=== PATIENT | female | born 1935 | race Caucasian/White ===

== ENCOUNTER 2019-03-03 09:16 | Emergency (ER) | payer MEDICARE ==
--- NOTE | 2019-03-03 09:27 | EDM.PDOC ---
ED HPI GENERAL MEDICAL PROBLEM - General Chief Complaint: Neurological Problem Stated Complaint: CODE GREEN Time Seen by Provider: 03/03/19 09:20 Source of Information: Reports: Patient, EMS, Old Records History Limitations: Reports: No Limitations - History of Present Illness INITIAL COMMENTS - FREE TEXT/NARRATIVE: Patient was last known to be okay at 8:00 this morning. Then she started having numbness and tingling on the right side and this went TO HER RIGHT ANKLE. SHE ALSO HAD VISUAL EFFECTS SLURRING. By time she came into the emergency room her symptoms had essentially resolved. She did have a CAT scan which was deemed negative. Her labs were unremarkable. Her blood pressure was initially 170 but it did come down to in the 130s. 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 I did talk to the neurologist about 10:15. He suggested to continue to challenge the patient regarding the dysphagia to see whether or not the patient was having a true issue with it. Otherwise he said TPA could be a recommendation. CTA was not recommended at this time. I did give her a 500 bolus. The patient is otherwise quite active. Her coiling of her brain bleed was in 2010. Her regular doctor is Garima Loredo. The last time that she was seen by her doctor was in December for a urinary tract infection. The patient is scheduled again to see her doctor in May. She is on Plavix. I did talk to the neurologist again and he agreed that the TPA was unnecessary. I did talk to him about the concern of her going home and he did have me talk to the hospitalist and hospitalist agreed to admit the patient for at least observation. This was done about 11:15. The patient was comfortable with this plan. Correspondence with [place] took about 30 minutes and assisting with the patient's care. Onset: Today, Sudden Duration: Intermittent Location: Reports: Head, Face, Upper Extremity, Right, Lower Extremity, Right Past Medical History - History Comment History Comment: Reviewed her medical history. Social & Family History - Tobacco Use Smoking Status *Q: Former Smoker ED ROS GENERAL - Review of Systems Review Of Systems: ROS reveals no pertinent complaints other than HPI. ED EXAM, NEURO - Physical Exam Exam: See Below Exam Limited By: No Limitations General Appearance: Alert, Mild Distress Ears: Normal External Exam, Normal Canal, Hearing Grossly Normal, Normal TMs Nose: Normal Inspection, Normal Mucosa, No Blood Throat/Mouth: Normal Inspection, Normal Lips, Normal Teeth, Normal Gums, Normal Oropharynx, Normal Voice, No Airway Compromise Head Exam: Atraumatic, Normocephalic Neck: Normal Inspection, Supple, Non-Tender, Full Range of Motion Respiratory/Chest: No Respiratory Distress, Lungs Clear, Normal Breath Sounds, No Accessory Muscle Use, Chest Non-Tender Cardiovascular: Normal Peripheral Pulses, Regular Rate, Rhythm, No Edema, No Gallop, No JVD, No Murmur, No Rub GI/Abdominal: Normal Bowel Sounds, Soft, Non-Tender, No Organomegaly, No Distention, No Abnormal Bruit, No Mass Neurological: Alert, Normal Mood/Affect, CN II-XII Intact, Normal Gait, Normal Reflexes, Oriented x 3, Other (A degree of dysphasia. ) *Q Meaningful Use (ADM) - VTE *Q VTE Criteria *Q: On Plavix VTE Mechanical Contraindications *Q: At Risk for Falls (based on age and previous TIAs.) - VTE Risk Assess *Q Each Risk Factor Represents 1 Point: None Total Score 1 Point Risk Factors: 0 Each Risk Factor Represents 3 Points: Age 75 Years or Greater Total Score 3 Point Risk Factors: 3 - Stroke *Q Stroke Criteria *Q: TIA Course - Orders/Labs/Meds Orders: Active Orders 24 hr Category Date Time Status EKG 12 Lead [EKG Documentation Completion] [RC] STAT Care 03/03/19 10:36 Active CULTURE URINE [RM] Stat Lab 03/03/19 10:01 Received Labs: Laboratory Tests 03/03/19 03/03/19 03/03/19 Range/Units 09:30 09:30 09:30 WBC 3.6 L (4.0-10.0) x10^3/uL RBC 4.45 (4.00-5.50) x10^6/uL Hgb 13.2 (12.0-16.0) g/dL Hct 40.7 (33.0-47.0) % MCV 91.5 (78.0-93.0) fL MCH 29.7 (26.0-32.0) pg MCHC 32.4 (32.0-36.0) g/dL RDW Coeff of Joceline 13.9 (10.0-15.0) % Plt Count 206 (130-400) x10^3/uL Neut % (Auto) 52.4 (50.0-80.0) % Lymph % (Auto) 33.7 (25.0-50.0) % [place] % (Auto) 8.6 (2.0-11.0) % Eos % (Auto) 4.7 H (0.0-4.0) % Baso % (Auto) 0.6 (0.2-1.2) % PT 10.8 (10.0-12.8) SEC INR 1.0 L (2.0-3.5) APTT 24.0 (24.0-36.0) SEC Sodium 143 (136-145) mmol/L Potassium 4.0 (3.5-5.1) mmol/L Chloride 105 (98-107) mmol/L Carbon Dioxide 28 (21-32) mmol/L Anion Gap 14.0 (10-20) mmol/L BUN 16 (7-18) mg/dL Creatinine 0.9 (0.55-1.02) mg/dL Est Cr Clr Drug Dosing TNP Estimated GFR (MDRD) 60 Glucose 105 (74-106) mg/dL Calcium 9.0 (8.5-10.1) mg/dL POC Troponin I (0.00-0.08) ng/mL 03/03/19 Range/Units 09:39 WBC (4.0-10.0) x10^3/uL RBC (4.00-5.50) x10^6/uL Hgb (12.0-16.0) g/dL Hct (33.0-47.0) % MCV (78.0-93.0) fL MCH (26.0-32.0) pg MCHC (32.0-36.0) g/dL RDW Coeff of Joceline (10.0-15.0) % Plt Count (130-400) x10^3/uL Neut % (Auto) (50.0-80.0) % Lymph % (Auto) (25.0-50.0) % [place] % (Auto) (2.0-11.0) % Eos % (Auto) (0.0-4.0) % Baso % (Auto) (0.2-1.2) % PT (10.0-12.8) SEC INR (2.0-3.5) APTT (24.0-36.0) SEC Sodium (136-145) mmol/L Potassium (3.5-5.1) mmol/L Chloride (98-107) mmol/L Carbon Dioxide (21-32) mmol/L Anion Gap (10-20) mmol/L BUN (7-18) mg/dL Creatinine (0.55-1.02) mg/dL Est Cr Clr Drug Dosing Estimated GFR (MDRD) Glucose (74-106) mg/dL Calcium (8.5-10.1) mg/dL POC Troponin I 0.00 (0.00-0.08) ng/mL Meds: Medications Discontinued Medications Generic Name Dose Route Start Last Admin Trade Name Freq PRN Reason Stop Dose Admin Sodium Chloride 500 mls @ 999 mls/hr 03/03/19 10:29 03/03/19 10:35 Normal Saline IV 03/03/19 10:59 999 mls/hr .BOLUS ONE Administration Departure - Departure Time of Disposition: 11:29 Disposition: DC/Tfer to Acute Hospital 02 Condition: Fair Clinical Impression: Transient ischemic attack (TIA) - Discharge Information *PRESCRIPTION DRUG MONITORING PROGRAM REVIEWED*: Not Applicable *COPY OF PRESCRIPTION DRUG MONITORING REPORT IN PATIENT [place]: Not Applicable Referrals: Isabel Loredo DO [Primary Care Provider] - Forms: ED Department Discharge, Interfacility Transfer EMTALA - My Orders Last 24 Hours: My Active Orders 03/03/19 10:01 CULTURE URINE [RM] Stat 03/03/19 10:36 EKG 12 Lead [EKG Documentation Completion] [RC] STAT - Assessment/Plan Last 24 Hours: My Active Orders 03/03/19 10:01 CULTURE URINE [RM] Stat 03/03/19 10:36 EKG 12 Lead [EKG Documentation Completion] [RC] STAT
--- NOTE | 2019-03-03 09:43 | CT ---
[id number] CT/CT Head Stroke Protocol EXAM: CT Head Stroke Protocol CLINICAL DATA: STROKE. 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 No intracranial hemorrhage, extra-axial fluid collection, mass, or acute ischemia. Generalized parenchymal atrophy with scattered areas of nonspecific white matter disease, commonly seen as sequela of chronic microvascular ischemia. Soft tissues are unremarkable. Paranasal sinuses and mastoid air cells are clear. IMPRESSION: No acute intracranial findings. Ricky Cary DO 03/03/19 0941 Thank you for allowing us to participate in the care of your patient.
[2019-03-03 09:59] LABS: CHLORIDE,CL 105 mmol/L (98-107); SODIUM,NA 143 mmol/L (136-145)
[2019-03-03] MEDS ORDERED: Sodium Chloride 0.9% 500 ML IV ONE (10:29)
== END 2019-03-03 11:40 | disposition short-term general hospital (02) ==
LOC: VM.ED 09:16
DX: G45.9 Transient cerebral ischemic attack, unspecified (principal); Z87.891 Personal history of nicotine dependence
CPT/HCPCS: 36415; 70450; 80048; 84484; 85025; 85610; 85730; 87086; 93005; 96360; 99285; J7030; 99284-GF

== ENCOUNTER 2019-04-01 07:41 | Emergency (ER) | payer MEDICARE ==
--- NOTE | 2019-04-01 08:14 | CT ---
[id number] CT/CT Head Stroke Protocol Exam: CT Head Stroke Protocol Clinical Data: NEUROLOGIC DEFICIT COMPARISON: NO PREVIOUS SIMILAR EXAM IS AVAILABLE FINDINGS: Embolization coils are seen. There is no hyperdense middle cerebral artery sign. There are no sites of discrete acute abnormal attenuation. There are no blood products. There is no mass or mass effect. There are no extra-axial fluid collections. Report was called at the time of the exam. IMPRESSION: NO ACUTE PLAIN CT ABNORMALITY. Raffi Cotton MD 04/01/19 0812 Thank you for allowing us to participate in the care of your patient.
[2019-04-01 08:17] LABS: CHLORIDE,CL 107 mmol/L (98-107); SODIUM,NA 144 mmol/L (136-145)
[2019-04-01 08:19] LABS: ANION GAP 13.7 mmol/L (10-20)
--- NOTE | 2019-04-01 08:30 | CT ---
[id number] CT/CT Cervical Spine WO IV Exam: CT Cervical Spine WO IV Clinical Data: RIGHT SIDE DECREASED SENSATION COMPARISON: NO PREVIOUS SIMILAR EXAM IS AVAILABLE FINDINGS: There is no fracture or subluxation. There are degenerative changes primarily involving C5-C6, C6-C7, and C7-T1. Foraminal narrowing is seen at these levels. IMPRESSION: DEGENERATIVE CHANGES OF LOWER CERVICAL SPINE. Raffi Cotton MD 04/01/19 0829 Thank you for allowing us to participate in the care of your patient.
[2019-04-01] MEDS ORDERED: Sodium Chloride 0.9% 1,000 ML IV ONE (08:33)
[2019-04-01] MEDS ORDERED: Ondansetron 4 MG/2 ML SDV IVPUSH ONE (08:33)
--- NOTE | 2019-04-01 08:33 | EDM.PDOC ---
ED HPI GENERAL MEDICAL PROBLEM - General Chief Complaint: Neuro Symptoms/Deficits Stated Complaint: DEVEN GALLARDO Time Seen by Provider: 04/01/19 07:45 Source of Information: Reports: Patient, EMS History Limitations: Reports: No Limitations - History of Present Illness INITIAL COMMENTS - FREE TEXT/NARRATIVE: Patient reports being up to use the bathroom at 0430 this am and when she awoke at 0730 notice she had right arm and leg numbness. She states this is still present. Denies weakness, facial droop, speech or swallowing difficulty. She denies headache. Has had multiple episodes in the past with the most recent in February 2019 resulting with the above, as well as speech problems and facial parasthesia. She denies at this time. Upon discharge from [facility] in February they did question as to whether this was a seizure or atypical migraine headache and did start her on Keppra. She was unable to tolerate and was weaned off. Neurontin was then started. Does have some nausea but no emesis. Denies recent illness. No fever, chills, chest pain, SOB, abdominal pain. Onset: Today, Sudden Onset Date: 04/01/19 Onset Time: 07:30 Duration: Constant Location: Reports: Upper Extremity, Right, Lower Extremity, Right Past Medical History - History Comment History Comment: Reviewed her medical history. ED ROS GENERAL - Review of Systems Review Of Systems: See Below Constitutional: Reports: No Symptoms HEENT: Reports: No Symptoms Respiratory: Reports: No Symptoms Cardiovascular: Reports: No Symptoms Endocrine: Reports: No Symptoms GI/Abdominal: Reports: Nausea Musculoskeletal: Reports: No Symptoms Skin: Reports: No Symptoms Neurological: Reports: Numbness (right arm and leg) Psychiatric: Reports: No Symptoms Hematologic/Lymphatic: Reports: No Symptoms Immunologic: Reports: No Symptoms ED EXAM, NEURO - Physical Exam Exam: See Below Exam Limited By: No Limitations General Appearance: Alert, WD/WN, No Apparent Distress Eye Exam: Bilateral Eye: EOMI, Normal Inspection, PERRL (pupils 2-3 bilaterally, ) Ears: Normal TMs Nose: Normal Inspection, Normal Mucosa, No Blood Throat/Mouth: Normal Inspection, Normal Lips, Normal Teeth, Normal Gums, Normal Oropharynx, Normal Voice, No Airway Compromise Head Exam: Atraumatic, Normocephalic Neck: Normal Inspection, Supple, Non-Tender, Full Range of Motion Respiratory/Chest: No Respiratory Distress, Lungs Clear, Normal Breath Sounds, No Accessory Muscle Use, Chest Non-Tender Cardiovascular: Normal Peripheral Pulses, Regular Rate, Rhythm, No Edema, No Gallop, No JVD, No Murmur, No Rub GI/Abdominal: Normal Bowel Sounds, Soft, Non-Tender, No Organomegaly, No Distention, No Abnormal Bruit, No Mass Neurological: Alert, Normal Mood/Affect, Normal Dorsiflexion, CN II-XII Intact, Normal Plantar Flexion, Normal Gait, Normal Reflexes, Oriented x 3, Abn 2 Pt Discrimination (right leg and arm ) Back Exam: Normal Inspection, Full Range of Motion, NT Extremities: Normal Inspection, Normal Range of Motion, Non-Tender, No Pedal Edema, Normal Capillary Refill Psychiatric: Normal Affect, Normal Mood Skin Exam: Warm, Dry, Intact, Normal Color, No Rash Course - Orders/Labs/Meds Labs: Laboratory Tests 04/01/19 04/01/19 04/01/19 Range/Units 07:57 07:57 07:57 WBC 3.3 L (4.0-10.0) x10^3/uL RBC 4.42 (4.00-5.50) x10^6/uL Hgb 13.1 (12.0-16.0) g/dL Hct 39.8 (33.0-47.0) % MCV 90.0 (78.0-93.0) fL MCH 29.6 (26.0-32.0) pg MCHC 32.9 (32.0-36.0) g/dL RDW Coeff of Joceline 13.6 (10.0-15.0) % Plt Count 187 (130-400) x10^3/uL Neut % (Auto) 45.0 L (50.0-80.0) % Lymph % (Auto) 39.8 (25.0-50.0) % [place] % (Auto) 9.1 (2.0-11.0) % Eos % (Auto) 5.2 H (0.0-4.0) % Baso % (Auto) 0.9 (0.2-1.2) % PT 10.5 (10.0-12.8) SEC INR 0.9 L (2.0-3.5) APTT 23.0 L (24.0-36.0) SEC Sodium 144 (136-145) mmol/L Potassium 3.7 (3.5-5.1) mmol/L Chloride 107 (98-107) mmol/L Carbon Dioxide 27 (21-32) mmol/L Anion Gap 13.7 (10-20) mmol/L BUN 16 (7-18) mg/dL Creatinine 0.9 (0.55-1.02) mg/dL Est Cr Clr Drug Dosing TNP Estimated GFR (MDRD) 60 Glucose 121 H (74-106) mg/dL Calcium 8.9 (8.5-10.1) mg/dL POC Troponin I (0.00-0.08) ng/mL NT-Pro-B Natriuret Pep (<=450) pg/mL Urine Color (YELLOW) Urine Appearance (CLEAR) Urine pH (5.0-8.0) Ur Specific [place] Urine Protein (NEGATIVE) mg/dL Urine Glucose (UA) (NEGATIVE) mg/dL Urine Ketones (NEGATIVE) mg/dL Urine Occult Blood (NEGATIVE) Urine Nitrite (NEGATIVE) Urine Bilirubin (NEGATIVE) Urine Urobilinogen (0.2) EU/dL Ur Leukocyte Esterase (NEGATIVE) Urine RBC (NOT SEEN) /HPF Urine WBC (NOT SEEN) /HPF Ur Squamous Epith Cells (NEGATIVE) /HPF Urine Bacteria (NEGATIVE) /HPF Urine Mucus (NEGATIVE) /LPF 04/01/19 04/01/19 04/01/19 Range/Units 07:57 08:01 08:25 WBC (4.0-10.0) x10^3/uL RBC (4.00-5.50) x10^6/uL Hgb (12.0-16.0) g/dL Hct (33.0-47.0) % MCV (78.0-93.0) fL MCH (26.0-32.0) pg MCHC (32.0-36.0) g/dL RDW Coeff of Joceline (10.0-15.0) % Plt Count (130-400) x10^3/uL Neut % (Auto) (50.0-80.0) % Lymph % (Auto) (25.0-50.0) % [place] % (Auto) (2.0-11.0) % Eos % (Auto) (0.0-4.0) % Baso % (Auto) (0.2-1.2) % PT (10.0-12.8) SEC INR (2.0-3.5) APTT (24.0-36.0) SEC Sodium (136-145) mmol/L Potassium (3.5-5.1) mmol/L Chloride (98-107) mmol/L Carbon Dioxide (21-32) mmol/L Anion Gap (10-20) mmol/L BUN (7-18) mg/dL Creatinine (0.55-1.02) mg/dL Est Cr Clr Drug Dosing Estimated GFR (MDRD) Glucose (74-106) mg/dL Calcium (8.5-10.1) mg/dL POC Troponin I 0.00 (0.00-0.08) ng/mL NT-Pro-B Natriuret Pep 53 (<=450) pg/mL Urine Color Light yellow (YELLOW) Urine Appearance Clear (CLEAR) Urine pH 7.5 (5.0-8.0) Ur Specific [place] 1.015 Urine Protein Negative (NEGATIVE) mg/dL Urine Glucose (UA) Negative (NEGATIVE) mg/dL Urine Ketones Negative (NEGATIVE) mg/dL Urine Occult Blood Negative (NEGATIVE) Urine Nitrite Negative (NEGATIVE) Urine Bilirubin Negative (NEGATIVE) Urine Urobilinogen 0.2 (0.2) EU/dL Ur Leukocyte Esterase Negative (NEGATIVE) Urine RBC 0-5 (NOT SEEN) /HPF Urine WBC Not seen (NOT SEEN) /HPF Ur Squamous Epith Cells Rare (NEGATIVE) /HPF Urine Bacteria Rare (NEGATIVE) /HPF Urine Mucus Rare H (NEGATIVE) /LPF Meds: Medications Discontinued Medications Generic Name Dose Route Start Last Admin Trade Name Kevinq PRN Reason Stop Dose Admin Sodium Chloride 1,000 mls @ 999 mls/hr 04/01/19 08:33 Normal Saline IV 04/01/19 09:33 ONETIME ONE Ondansetron HCl 4 mg 04/01/19 08:33 Zofran IVPUSH 04/01/19 08:34 ONETIME ONE - Re-Assessments/Exams Free Text/Narrative Re-Assessment/Exam: 04/01/19 0900 Called [facility] call for report and transfer of patient. Neurology not immediately available and I did have to wait 20-30 minutes for callback. Departure - Departure Time of Disposition: 10:25 Disposition: DC/Tfer to Acute Hospital 02 Condition: Fair Clinical Impression: Migraine - Discharge Information Referrals: Isabel Loredo DO [Primary Care Provider] - Forms: ED Department Discharge, Interfacility Transfer [facility] ED Communication - ED Communication Date/Time Date: 04/01/19 Time Called: 09:15 - Discussed Case With (1) Discussed Case With (1): Other (Dr. Cohen contacted regarding patient. He does not feel vascular is needed and referred to Dr. Queen, with neurology. Dr. Queen contacted and given report. Recommends transfer to ER for MRA/MRI and EEG in ER. He talked with Dr. lFaherty in ED [facility].)
== END 2019-04-01 10:25 | disposition short-term general hospital (02) ==
LOC: VM.ED 07:41
DX: G43.909 Migraine, unspecified, not intractable, without status migrainosus (principal)
CPT/HCPCS: 36415; 70450; 72125; 80048; 81001; 83880; 84484; 85025; 85610; 85730; 93005; 96361; 96374; 99283-GF; 99291-25; 99292

== ENCOUNTER 2019-08-04 12:39 | Emergency (ER) | payer MEDICARE ==
--- NOTE | 2019-08-04 13:05 | EDM.PDOC ---
ED HPI GENERAL MEDICAL PROBLEM - General Chief Complaint: Chest Pain Stated Complaint: ACID REFLUX Time Seen by Provider: 08/04/19 12:45 Source of Information: Reports: Patient History Limitations: Reports: No Limitations - History of Present Illness INITIAL COMMENTS - FREE TEXT/NARRATIVE: Patient states about 1045 this morning she had a sharp burning pain in her lower epigastric that radiated to her right side and into her shoulder blade she said it was about a 7 out of 10 and she's had this multiple times before due to acid reflux. She said she ate breast about 9:30 she then proceeded to the ER and now states pain is about a 3 out of 10 which does not want anything for it. She has long-standing history of reflux which has been taking omeprazole for years. She denies having any heart attacks in the past and has had a stroke within the last year and currently wears a loop monitor internal planted monitoring for atrial fibrillation. She denies any chest pain shortness breath nausea vomiting lightheaded or dizziness state she feels much better now She has seen a dry cleaning manager within last year but never had a stress test or cath done but has been seen in the emergency room many times for the same symptoms she is having now and the workup has always been negative Duration: Hour(s): Location: Reports: Abdomen Quality: Reports: Burning, Stabbing Improves with: Reports: Medication, Rest Associated Symptoms: Reports: No Other Symptoms Treatments BARGE HAND: Reports: Other (see below) (None) Past Medical History - History Comment History Comment: Reviewed her medical history. ED ROS GENERAL - Review of Systems Review Of Systems: See Below Constitutional: Reports: No Symptoms. Denies: Fever, Chills, Malaise, Weakness , Fatigue HEENT: Reports: No Symptoms Respiratory: Denies: Shortness of Breath, Wheezing, Pleuritic Chest Pain Cardiovascular: Denies: Chest Pain, Blood Pressure Problem, Dyspnea on Exertion , Lightheadedness, Orthopnea, Palpitations, Syncope Endocrine: Reports: No Symptoms GI/Abdominal: Reports: Abdominal Pain. Denies: Anorexia, Black Stool, Bloody Stool, Constipation, Decreased Appetite, Difficulty Swallowing, Flatus, Nausea, Vomiting : Reports: No Symptoms Musculoskeletal: Reports: No Symptoms Skin: Reports: No Symptoms Neurological: Reports: No Symptoms Psychiatric: Reports: No Symptoms Hematologic/Lymphatic: Reports: No Symptoms Immunologic: Reports: No Symptoms ED EXAM, GENERAL - Physical Exam Exam: See Below Exam Limited By: No Limitations General Appearance: Alert, WD/WN, No Apparent Distress, Other (Patient appears no acute distress laughing cutting up states she feels much better now) Eye Exam: Bilateral Eye: EOMI, PERRL Nose: Normal Inspection, Normal Mucosa, No Blood Throat/Mouth: Normal Inspection, Normal Lips, Normal Teeth, Normal Gums, Normal Oropharynx, Normal Voice, No Airway Compromise Head: Atraumatic Neck: Normal Inspection, Supple, Non-Tender, Full Range of Motion Respiratory/Chest: No Respiratory Distress, Lungs Clear, Normal Breath Sounds, No Accessory Muscle Use, Chest Non-Tender Cardiovascular: Normal Peripheral Pulses, Regular Rate, Rhythm, No Edema, No Gallop, No JVD, No Murmur, No Rub GI/Abdominal: Normal Bowel Sounds, Soft, Non-Tender, No Organomegaly, No Distention, No Abnormal Bruit, Other (Negative tenderness palpation over the epigastric area) Extremities: Normal Inspection, Normal Range of Motion, Non-Tender, No Pedal Edema, Normal Capillary Refill Neurological: Alert, Oriented, CN II-XII Intact, Normal Cognition, Normal Gait Psychiatric: Normal Affect, Normal Mood Skin Exam: Warm, Dry, Intact, Normal Color, No Rash Course - Vital Signs Text/Narrative:: EKG normal sinus rhythm no acute findings - Orders/Labs/Meds Orders: Active Orders 24 hr Category Date Time Status EKG 12 Lead [EKG Documentation Completion] [RC] STAT Care 08/04/19 12:58 Active Labs: Laboratory Tests 08/04/19 08/04/19 08/04/19 Range/Units 13:12 13:12 16:05 WBC 4.7 (4.0-10.0) x10^3/uL RBC 4.20 (4.00-5.50) x10^6/uL Hgb 12.2 (12.0-16.0) g/dL Hct 37.6 (33.0-47.0) % MCV 89.5 (78.0-93.0) fL MCH 29.0 (26.0-32.0) pg MCHC 32.4 (32.0-36.0) g/dL RDW Coeff of Joceline 13.7 (10.0-15.0) % Plt Count 197 (130-400) x10^3/uL Sodium 144 (69-191) mmol/L Potassium 4.0 (1.5-9.9) mmol/L Chloride 107 (54-184) mmol/L Carbon Dioxide 28 (21-32) mmol/L Anion Gap 13.0 (10-20) mmol/L BUN 15 (7-18) mg/dL Creatinine 0.9 (0.55-1.02) mg/dL Est Cr Clr Drug Dosing TNP Estimated GFR (MDRD) 60 Glucose 100 (74-106) mg/dL Calcium 9.0 (8.5-10.1) mg/dL Troponin I < 0.017 < 0.017 (<=0.056) ng/mL Departure - Departure Time of Disposition: 16:55 Disposition: Home, Self-Care 01 Condition: Good Clinical Impression: Atypical chest pain Referrals: Isabel Loredo DO [Primary Care Provider] - Forms: ED Department Discharge - Problem List & Annotations (1) Atypical chest pain SNOMED Code(s): 804727222 Code(s): R07.89 - OTHER CHEST PAIN Status: Acute Current Visit: Yes - My Orders Last 24 Hours: My Active Orders 08/04/19 12:58 EKG 12 Lead [EKG Documentation Completion] [RC] STAT - Assessment/Plan Last 24 Hours: My Active Orders 08/04/19 12:58 EKG 12 Lead [EKG Documentation Completion] [RC] STAT
[2019-08-04 13:42] LABS: CHLORIDE,CL 107 mmol/L (54-184); SODIUM,NA 144 mmol/L (69-191)
--- NOTE | 2019-08-04 14:08 | CR ---
[id number] RAD/RAD Chest PA or AP 1V EXAM: RAD Chest PA or AP 1V INDICATION: CHEST PAIN. COMPARISON: September 2012 DISCUSSION: Cardiomediastinal silhouette is normal in size and contour. No infiltrate, effusion, pneumothorax, or edema. IMPRESSION: No acute findings. Mega Ochoa MD 08/04/19 0485 Thank you for allowing us to participate in the care of your patient.
== END 2019-08-04 17:10 | disposition home or self-care (01) ==
LOC: VM.ED 12:39
DX: R07.89 Other chest pain (principal)
CPT/HCPCS: 36415; 71045; 80048; 84484; 85027; 93005; 99284-25